=== PATIENT | female | born 1945 | race Caucasian/White ===

== ENCOUNTER 2018-01-03 18:47 | Inpatient (IN) | payer MEDICARE ==
[~2018-01-03] VITALS: Ht 160 cm; Wt 105.7 kg
--- NOTE | ~2018-01-03 | MORECARE ---
CASE MANAGEMENT DISCHARGE SUMMARY PATIENT: ANTWAN APODACA UNIT: [id number] ADM DATE: 01/03/18 AGE: 72 : 45 SEX: F ROOM/BED: D.2119 AUTHOR: FEDERICA BUCK PHYSICIAN: REFERRING PHYSICIAN: ZEV MCKENNA MD DATE OF SERVICE: 01/10/18 Discharge Plan Patient Name: ANTWAN APODACA Facility: [facility]:[place] : 1945 Planned Disposition: Home Anticipated Discharge Date: 01/09/18 Discharge Date: 01/09/2018 Expected LOS: 6 Initial Reviewer: [email or web address] Initial Review Date: 01/09/2018 Generated: 01/10/18 10:31 am Coverage Notice Reviewer: [email or web address] - Salvador Kay Notice Issued Date-Time: 01/09/2018 10:05 Notice Type: IM Discharge Notice Notice Delivered To: Family Member Relationship to Patient: Daughter Support Worker Name: RENNY GAVREY Delivery Method: HAND - Hand Delivered Jessi Days: Prior Verbal Notification: Recipient Understood Notice: Yes Recipient Signature: Yes Med Rec Note Co-signed by Attending: Coverage Notice Comment: Patient Name: ANTWAN APODACA Page 27517 at 0931 All edits/amendments must be made on the electronic document DICTATION DATE: 01/10/18930 DIRECTOR OF GRADUATE MEDICAL EDUCATION: YING 01/10/18930 RPT#: [id number] DC DATE:01/09/18 STATUS: DIS IN [facility] [address] [place] [address] END OF REPORT
--- NOTE | ~2018-01-03 | MORECARE ---
CASE MANAGEMENT DISCHARGE SUMMARY PATIENT: ANTWAN APODACA UNIT: [id number] ADM DATE: 01/03/18 AGE: 72 : 45 SEX: F ROOM/BED: D.4081 AUTHOR: FEDERICA BUCK PHYSICIAN: REFERRING PHYSICIAN: ZEV MCKENNA MD DATE OF SERVICE: 01/10/18 Discharge Plan Patient Name: ANTWAN APODACA Facility: [facility]:[place] : 1945 Planned Disposition: Home Anticipated Discharge Date: 01/09/18 Discharge Date: 01/09/2018 Expected LOS: 6 Initial Reviewer: [email or web address] Initial Review Date: 01/09/2018 Generated: 01/10/18 10:41 am Comments DCP- Discharge Planning Updated by [email or web address]: Salvador Kay on 01/10/18 8:[address] Patient Name: ANTWAN APODACA Admission Status: ER Accout number: [id number] Admission Date: 01-03-2018 : 1945 Admission Diagnosis:OTHER FECAL ABNORMALITIES Attending: ZEV MCKENNA Current LOS: 6 Anticipated DC Date: 01-09-2018 Planned Disposition: Home Primary Insurance: [facility] MEDICARE SOLUTIONS Discharge Planning Comments: CM MET WITH PT AND DAUGHTER IN ROOM TO DISCUSS DISCHARGE PLANNING AND NEEDS. ANTWAN APODACA provided verbal consent to discuss current and ongoing needs with/in the presence of: DAUGHTER, RENNY. PT REPORTS LIVING AT HOME DEPENDENTLY WITH HER ADULT DAUGHTER. PT'S DAUGHTER IS PAID CAREGIVER THROUGH [employer] WHO ASSISTS PT WITH HOUSEKEEPING AND PERSONAL CARE. INTERNET SOURCER SERVICES ARE 12 1/2 HOURS PER WEEK, , 3 HOURS PER DAY / TUESDAY 2 1/2 HOURS PT HAS BEDSIDE COMMODE, NEBULIZER, HOME AND PORTABLE OXYGEN, SHOWER CHAIR AND ROLLING WALKDER FROM [facility]. CM DISCUSSED AVAILABILITY OF HOME HEALTH, REHAB SERVICES AND MEDICAL EQUIPMENT. PT DENIES DISCHARGE NEEDS, REPORTS HER DAUGHTER WILL PICK HER UP FOR DISCHARGE HOME. IMPORTANT MESSAGE FROM MEDICARE PROVIDED AND EXPLAINED. Floor Layer Tile: Salvador Kay DCPIA - Discharge Planning Initial Assessment Updated by [id number]: Salvador Kay on 01/10/18 9:32 am * Is the patient Alert and Oriented? Yes * How many steps to enter\exit or inside your home? * PCP DR. MCKENNA * [facility] * Preadmission Environment Home with Family * ADLs Independent * Equipment Bedside Commode Nebulizer Oxygen Shower Chair Walker * Other Equipment WALKER WITH WHEELS SEAT AND BRAKES HOME AND PORTABLE OXYGEN [facility] - MEDICAL EQUIPMENT PROVIDER * List name and contact numbers for known caregivers / representatives who currently or will assist patient after discharge: RENNY GARVEY, DAUGHTER, * Verbal permission to speak to the caregivers and representatives has been obtained from the patient. Yes * Community resources currently utilized Private Duty Care * Please name any agencies selected above. [employer], 12 1/2 HOURS PER WEEK -TH, 3 HOURS PER DAY / TUESDAY 2 1/2 HOURS DAUGHTER IS PAID CAREGIVER * Additional services required to return to the preadmission environment? No * Can the patient safely return to the preadmission environment? Yes * Has this patient been hospitalized within the prior 30 days at any hospital? No Coverage Notice Reviewer: [email or web address] Aundrea Kay Notice Issued Date-Time: 01/09/2018 10:05 Notice Type: IM Discharge Notice Notice Delivered To: Family Member Relationship to Patient: Daughter Polymerization Supervisor Name: RENNY GARVEY Delivery Method: HAND - Hand Delivered Jessi Days: Prior Verbal Notification: Recipient Understood Notice: Yes Recipient Signature: Yes Med Rec Note Co-signed by Attending: Coverage Notice Comment: Last DP export: 01/10/18 8:31 a Patient Name: ANTWAN APODACA Page [phone] at 0941 All edits/amendments must be made on the electronic document DICTATION DATE: 01/10/18939 PEDIATRICIAN ACTIVE PRACTICE: YING 01/10/18939 RPT#: [id number] DC DATE:01/09/18 STATUS: DIS IN [facility] [address] [place] [address] END OF REPORT
--- NOTE | ~2018-01-03 | HP ---
PATIENT: ANTWAN APODACA MEDICAL RECORD: [id number] ACCOUNT: [id number] LOCATION:[address] : [birth year] ADMISSION DATE: 01/03/18 PCP: ZEV MCKENNA MD HISTORY AND PHYSICAL EXAMINATION DATE OF ADMISSION: __ CHIEF COMPLAINT: Passing dark red blood in stool. HISTORY OF PRESENT ILLNESS: This is a 72-year-old female who was brought to the Emergency Department after passing dark red blood, just started prior to admission. She has had the same problem before, 2-3 times. She was last admitted to [facility] in June of this year for diverticulitis with the same presentation. She has a little pain in the left lower quadrant of the abdomen. She had a GI workup by Dr. Castaneda done at [facility] in September 2016. This included an EGD and a colonoscopy done 08/18/2016. Findings showed a small hiatal hernia, mild gastritis and diverticulosis coli. There was 1 cm rectal polyp, mild internal hemorrhoids. It was felt her GI bleed at that time was likely diverticular in nature and has resolved. Again in June of this year at [facility], she had similar presentation and she stayed a total of 2-3 days and discharged after her symptoms resolved then, she is admitted now. PAST MEDICAL AND SURGICAL HISTORY: She has depression, arthritis, hypertension, history of reflux, multiple admissions for diverticulitis or diverticulosis with bleeding. She has a history of anxiety and has a history of remote myocardial infarction. However, she had a recent angiogram done at [facility] just in the last couple of months that showed no obstructive coronary artery disease. Incidental findings on a carotid Doppler ultrasound showed a thyroid cyst and an ultrasound was done at [facility] showing right thyroid nodule measuring 3.7 x 2.5 x 2.7 cm and is recommended for tissue biopsy of that. The patient reportedly has COPD; however, recent pulmonary function tests done at [facility] in [place] showed no evidence of COPD. She had a history of sleep apnea, used to be on CPAP, but it was removed from her home years ago. She had a sleep study done just in the last couple of months, showing severe sleep apnea, restless leg syndrome. I do not know if a CPAP machine has been ordered or not at this time. PAST SURGICAL HISTORY: Cataracts, cholecystectomy, bladder sling. ALLERGIES: SULFA. SOCIAL HISTORY: She lives with her daughter. HABITS: Never smoked. No alcohol or drugs. FAMILY HISTORY: Father is . He had hypertension, heart disease and some sort of cancer. Mother is . She had hypertension, heart disease and some sort of cancer. HOME MEDICATIONS: Include Zyrtec 10 mg a day, albuterol via nebulizer every 6 hours p.r.n. shortness of breath, Lipitor 20 mg a day, Norvasc 5 mg a day, Xanax 0.5 mg twice a day p.r.n. anxiety, aspirin 81 mg a day, Prozac 40 mg a day, Meloxicam 15 mg a day, buspirone 10 mg in the morning and 5 mg at bedtime, guaifenesin twice a day, omeprazole 20 mg twice a day, multivitamin, Lutein 20 mg capsule once a day, cranberry extract 500 mg once a day. HISTORY AND PHYSICAL [id number] ANTWAN APODACA REVIEW OF SYSTEMS: GENERAL: No major weight changes. HEENT: She does have some sinus and allergy problems. RESPIRATORY: Again, going through pulmonary evaluation, [facility] and recent pulmonary function test showed no evidence of COPD. She has a followup appointment next month with the medical corps officer there. CARDIAC: She has history of remote CT. Her echocardiogram was good and an angiogram done in the last couple of months showed no obstructive coronary artery disease. GASTROINTESTINAL: She has had the EGD and colonoscopy on 08/18/[address] at [facility] [address] Castaneda showing small hiatal hernia, mild gastritis and diverticulosis. She has had some heartburn. MUSCULOSKELETAL: She has arthritic aches and pains. NEUROLOGIC: Denies migraines or seizures. PSYCHIATRIC: Has anxiety. PHYSICAL EXAMINATION: VITAL SIGNS: Temperature 97.5, pulse 86, respirations 20, blood pressure 131/78, O2 sat 95%. GENERAL: She is awake and alert, in no acute distress, a little hard of hearing. HEENT: Grossly within normal limits. NECK: Supple. No JVD or bruit. HEART: Regular rate and rhythm. LUNGS: Fairly clear. ABDOMEN: Soft, flat. There is a little tenderness in the lower abdomen, more to the left of the midline. No guarding or rebound. No mass. EXTREMITIES: No edema. LABORATORY DATA: Initial CBC showed a white count of 12,700, hemoglobin 39.6. Several hours later, hemoglobin was down to 11.0, hematocrit 35.8. Urinalysis was okay. Basic metabolic panel was okay. Liver functions were fine. Troponin was less than 0.017. Amylase and lipase were normal. CT of the abdomen and pelvis showed a small focus of acute sigmoid diverticulitis. ASSESSMENT: Acute diverticulitis. PLAN: We will start IV antibiotics, clear liquid diet. GI has been consulted. Other tests or procedures as warranted. TRANSINT:[id number] Voice Confirmation ID: [id number] DOCUMENT ID: [id number] ZEV MCKENNA MD at 0844 CC: [id number] DICTATION DATE: 01/04/18925 INSPECTOR GRAIN MILL PRODUCTS: 01/04/18 1130 ADM IN [place] [id number] [place] [id number]
[2018-01-03] MEDS ORDERED: PROVENTIL/2.5 MG/3 M INH (18:56)
[2018-01-03] MEDS ORDERED: PROZAC40 MG PO (18:57)
[2018-01-03] MEDS ORDERED: NORVASC5 MG PO (18:57)
[2018-01-03] MEDS ORDERED: BUSPAR10 MG PO (18:57)
[2018-01-03] MEDS ORDERED: OMEPRAZOLE20 M1 PO (18:57)
[2018-01-03] MEDS ORDERED: LUTEIN20 MG PO (18:58)
[2018-01-03] MEDS ORDERED: CENTRUM COMPLE1 EACH PO (18:58)
[2018-01-03] MEDS ORDERED: ZYRTEC10 MG PO (18:58)
[2018-01-03] MEDS ORDERED: XANAX0.5 MG PO (18:58)
[2018-01-03] MEDS ORDERED: MOBIC7.5 MG PO (18:59)
[2018-01-03] MEDS ORDERED: BAYER CHEWABLE81 MG PO (18:59)
[2018-01-03] MEDS ORDERED: LIPITOR20 MG PO (18:59)
[2018-01-03] MEDS ORDERED: CRANBERRY EXTRACT PO (19:00)
[2018-01-03 19:52] LABS: BASOPHILS 0.2 % (0-2); EOSINOPHILS 2.1 % (0-7); HEMATOCRIT 39.6 % (36.0-48.0); HEMOGLOBIN 12.7 g/dL (12-16); IMMATURE GRANULOCYTES 0.2 % (0-5); LYMPHOCYTES 20.6 % (15-50); MCH 27.8 pg (26.0-34.0); MCHC 32.1 g/dL (31.0-37.0); MCV 86.7 fL (80.0-100.0); MONOCYTES 8.8 % (2-11); NEUTROPHILS 68.1 % (40-80); PLATELET COUNT 303 10x3/uL (130-400); RBC 4.57 10x6/uL (4.00-5.40); WBC 8.7 10x3/uL (4.8-10.8)
[2018-01-03 20:30] VITALS: BP 113/68
[2018-01-03 20:38] LABS: APTT 30.1 SECONDS (22.8-39.4); INR 1.01 (0.85-1.17); PROTIME 12.8 SECONDS (11.6-15.0)
[2018-01-03 20:43] LABS: ALKALINE PHOSPHATASE 122 U/L (46-116); ALT (SGPT) 20 U/L (10-68); BILIRUBIN - TOTAL 0.25 mg/dL (0.2-1.3); CALC OSMOLALITY 278 mosm/kg (275-300); CALCIUM 8.8 mg/dL (8.5-10.1); CARBON DIOXIDE 34.1 mmol/L (21.0-32.0); CHLORIDE - SERUM 102 mmol/L (98-107); CREATININE - SERUM 1.1 mg/dL (0.6-1.3); GLUCOSE 111 mg/dL (74-106); POTASSIUM - SERUM 3.9 mmol/L (3.5-5.1); PROTEIN - SERUM 7.1 g/dL (6.4-8.2); SODIUM 139 mmol/L (136-145); UREA NITROGEN 13 mg/dL (7-18); eGFR NON AFRICAN AMERICAN 52 mL/min (90-120)
[2018-01-03 20:46] LABS: AMYLASE - SERUM 25 U/L (25-115); LIPASE 82 U/L (73-393); TROPONIN-I < 0.017 ng/mL (0.000-0.060)
[2018-01-03 20:52] LABS: APPEARANCE CLEAR (CLEAR); BILIRUBIN NEGATIVE (NEGATIVE); COLOR YELLOW (YELLOW); GLUCOSE NEGATIVE (NEGATIVE); KETONE NEGATIVE (NEGATIVE); NITRITE NEGATIVE (NEGATIVE); PROTEIN NEGATIVE (NEGATIVE); RED CELLS - URINE 0-5 /hpf (0-5); SPECIFIC GRAVITY 1.015 (1.005-1.020); UROBILINOGEN NORMAL (NORMAL)
[2018-01-03 20:53] LABS: BACTERIA FEW /hpf (NONE SEEN)
[2018-01-03 21:30] VITALS: BP 161/53
[2018-01-03 22:30] VITALS: BP 156/77
[2018-01-04] VITALS (7 sets, daily range): BP systolic 122–152; BP diastolic 44–78; BMI 40.8
[2018-01-04] MEDS ORDERED: BUSPAR5 MG PO (01:47)
[2018-01-04] MEDS ORDERED: MUCUS RELIEF400 MG PO (01:55)
[2018-01-04 05:55] LABS: BASOPHILS 0.1 % (0-2); EOSINOPHILS 1.7 % (0-7); HEMATOCRIT 35.8 % (36.0-48.0); IMMATURE GRANULOCYTES 0.4 % (0-5); MCH 27.3 pg (26.0-34.0); MCHC 30.7 g/dL (31.0-37.0); MEAN PLATELET VOLUME 9.7 fL (7.4-10.4); MONOCYTES 10.4 % (2-11); NEUTROPHILS 59.4 % (40-80); PLATELET COUNT 271 10x3/uL (130-400); RBC 4.03 10x6/uL (4.00-5.40); RDW 17.1 % (11.5-14.5); WBC 7.2 10x3/uL (4.8-10.8)
[2018-01-04 06:20] LABS: ALBUMIN 2.8 g/dL (3.4-5.0); ANION GAP 11.5 mmol/L (8-16); BILIRUBIN - TOTAL 0.42 mg/dL (0.2-1.3); CALCIUM 8.3 mg/dL (8.5-10.1); CARBON DIOXIDE 30.9 mmol/L (21.0-32.0); CREATININE - SERUM 1.1 mg/dL (0.6-1.3); MCV 88.8 fL (80.0-100.0); POTASSIUM - SERUM 3.4 mmol/L (3.5-5.1)
[2018-01-05] VITALS (7 sets, daily range): BP systolic 132–174; BP diastolic 50–77; Ht 160 cm; Wt 105.7 kg
[2018-01-05 06:13] LABS: BASOPHILS 0.2 % (0-2); EOSINOPHILS 4.5 % (0-7); HEMATOCRIT 32.2 % (36.0-48.0); IMMATURE GRANULOCYTES 0.2 % (0-5); LYMPHOCYTES 20.1 % (15-50); MCH 27.4 pg (26.0-34.0); MCHC 31.1 g/dL (31.0-37.0); MCV 88.2 fL (80.0-100.0); MEAN PLATELET VOLUME 9.4 fL (7.4-10.4); RBC 3.65 10x6/uL (4.00-5.40); RDW 16.8 % (11.5-14.5)
[2018-01-05 06:20] LABS: PLATELET COUNT 215 10x3/uL (130-400); WBC 4.9 10x3/uL (4.8-10.8)
[2018-01-06 03:55] VITALS: BP 141/59
[2018-01-06 06:58] LABS: BASOPHILS 0.2 % (0-2); EOSINOPHILS 2.2 % (0-7); HEMATOCRIT 30.8 % (36.0-48.0); HEMOGLOBIN 9.6 g/dL (12-16); IMMATURE GRANULOCYTES 0.2 % (0-5); MCH 27.4 pg (26.0-34.0); MCHC 31.2 g/dL (31.0-37.0); MCV 87.7 fL (80.0-100.0); MEAN PLATELET VOLUME 9.4 fL (7.4-10.4); MONOCYTES 9.8 % (2-11); NEUTROPHILS 58.6 % (40-80); PLATELET COUNT 202 10x3/uL (130-400); RBC 3.51 10x6/uL (4.00-5.40); RDW 16.6 % (11.5-14.5); WBC 4.6 10x3/uL (4.8-10.8)
[2018-01-06 08:09] VITALS: BP 139/53
[2018-01-06 12:58] VITALS: BP 136/65
[2018-01-06 17:41] VITALS: BP 139/74
[2018-01-06 20:00] VITALS: BP 106/41
[2018-01-07 04:00] VITALS: BP 102/50
[2018-01-07 05:20] LABS: BASOPHILS 0.2 % (0-2); EOSINOPHILS 2.1 % (0-7); HEMATOCRIT 30.6 % (36.0-48.0); HEMOGLOBIN 9.5 g/dL (12-16); IMMATURE GRANULOCYTES 0.5 % (0-5); LYMPHOCYTES 31.3 % (15-50); MCH 27.2 pg (26.0-34.0); MCV 87.7 fL (80.0-100.0); MEAN PLATELET VOLUME 9.2 fL (7.4-10.4); MONOCYTES 10.5 % (2-11); NEUTROPHILS 55.4 % (40-80); PLATELET COUNT 202 10x3/uL (130-400); RBC 3.49 10x6/uL (4.00-5.40); RDW 16.4 % (11.5-14.5); WBC 4.2 10x3/uL (4.8-10.8)
[2018-01-07 09:56] VITALS: BP 151/83
[2018-01-07 16:17] VITALS: BP 140/61
[2018-01-07 20:30] VITALS: BP 167/79
[2018-01-08 04:30] VITALS: BP 149/76
[2018-01-08 06:45] LABS: HEMOGLOBIN 10.7 g/dL (12-16)
[2018-01-08 09:33] VITALS: BP 136/67
[2018-01-08 12:58] VITALS: BP 140/74
[2018-01-08 17:09] VITALS: BP 141/68
[2018-01-08 20:30] VITALS: BP 136/55
[2018-01-09 05:51] LABS: BASOPHILS 0.2 % (0-2); EOSINOPHILS 2.8 % (0-7); HEMATOCRIT 32.9 % (36.0-48.0); HEMOGLOBIN 10.4 g/dL (12-16); IMMATURE GRANULOCYTES 0.2 % (0-5); LYMPHOCYTES 29.4 % (15-50); MCH 27.6 pg (26.0-34.0); MCHC 31.6 g/dL (31.0-37.0); MCV 87.3 fL (80.0-100.0); MEAN PLATELET VOLUME 9.4 fL (7.4-10.4); MONOCYTES 12.3 % (2-11); NEUTROPHILS 55.1 % (40-80); PLATELET COUNT 224 10x3/uL (130-400); RBC 3.77 10x6/uL (4.00-5.40); RDW 16.4 % (11.5-14.5); WBC 4.7 10x3/uL (4.8-10.8)
[2018-01-09 08:54] VITALS: BP 145/72
[2018-01-09] MEDS ORDERED: FLAGYL500 MG PO (09:03)
[2018-01-09] MEDS ORDERED: LEVOFLOXACIN500 MG PO (09:03)
[2018-01-09] MEDS ORDERED: ANUSOL-HC25 MG RC (09:06)
== END 2018-01-09 10:33 | disposition home or self-care (01) | DRG 378 ==
LOC: D.ER 18:47 → D.M2 23:36 → D.EDHOLD 23:36 → D.M2 23:54
PROVIDERS: Family Medicine; Internal Medicine Gastroenterology
DX: K57.93 Diverticulitis of intestine, part unspecified, without perforation or abscess with bleeding (principal); F33.1 Major depressive disorder, recurrent, moderate; M19.90 Unspecified osteoarthritis, unspecified site; M81.0 Age-related osteoporosis without current pathological fracture; I11.0 Hypertensive heart disease with heart failure; I50.9 Heart failure, unspecified; J44.9 Chronic obstructive pulmonary disease, unspecified; I25.10 Atherosclerotic heart disease of native coronary artery without angina pectoris; K21.9 Gastro-esophageal reflux disease without esophagitis; G47.33 Obstructive sleep apnea (adult) (pediatric)

== ENCOUNTER → 2018-02-10 10:22 | Outpatient (CLI) | payer MEDICARE ==
[2018-01-05 10:14] VITALS: BMI 41.2
[~2018-02-10 10:22] MED LIST: ANUSOL-HC25 MG RC; BAYER CHEWABLE81 MG PO; BUSPAR10 MG PO; BUSPAR5 MG PO; CENTRUM COMPLE1 EACH PO; CRANBERRY EXTRACT PO; FLAGYL500 MG PO; LEVOFLOXACIN500 MG PO; LIPITOR20 MG PO; LUTEIN20 MG PO; MOBIC7.5 MG PO; MUCUS RELIEF400 MG PO; NORVASC5 MG PO; OMEPRAZOLE20 M1 PO; PROVENTIL/2.5 MG/3 M INH; PROZAC40 MG PO; XANAX0.5 MG PO; ZYRTEC10 MG PO
== END | disposition home or self-care (01) ==
LOC: D.US 01-27 08:00
DX: E04.1 Nontoxic single thyroid nodule (principal)

== ENCOUNTER → 2018-06-12 12:32 | Outpatient (CLI) | payer MEDICARE ==
[2018-01-05 10:14] VITALS: BMI 41.2
== END | disposition home or self-care (01) ==
LOC: D.RT 12:32
PROVIDERS: ATTEND Internal Medicine Pulmonary Disease
DX: R06.09 Other forms of dyspnea (principal)

== ENCOUNTER → 2018-11-08 10:15 | Outpatient (CLI) | payer MEDICARE ==
[2018-03-09 13:51] VITALS: BMI 41.6
[~2018-11-08 10:15] MED LIST changes: +ALBUTEROL2.5 MG/3 M INH; +FISH OIL 1,0001 CA1 PO; +FLUNISOLIDE29 MCG NASAL; +HYDROCODON-ACE1 EAC7 PO; +LIPITOR10 MG PO; +LISINOPRIL5 MG PO; +MUCINEX600 MG PO; +PHENERGAN25 MG RC; +PROZAC20 MG PO; +ULTRAM50 MG PO; +ZOFRAN4 MG PO
== END | disposition home or self-care (01) ==
LOC: D.US 10:15
PROVIDERS: ATTEND Family Medicine
DX: E04.1 Nontoxic single thyroid nodule (principal)

== ENCOUNTER 2018-11-15 07:24 | Inpatient (IN) | payer MEDICARE ==
[~2018-11-15] VITALS: Ht 160 cm; Wt 108.9 kg
[~2018-11-15 07:24] MED LIST changes: -ALBUTEROL2.5 MG/3 M INH; -FLUNISOLIDE29 MCG NASAL; -HYDROCODON-ACE1 EAC7 PO; -ULTRAM50 MG PO
[2018-11-16] MEDS ORDERED: PROZAC40 MG PO (14:01)
[2018-11-16] MEDS ORDERED: ULTRAM50 MG PO (14:03)
[2018-11-16] MEDS ORDERED: FLUNISOLIDE29 MCG NASAL (14:04)
[2018-11-17] VITALS (9 sets, daily range): BP systolic 143–160; BP diastolic 63–76; BMI 42.4; BMI 42.6
[2018-11-17 06:27] LABS: BASOPHILS 0.3 % (0-2); EOSINOPHILS 0.7 % (0-7); HEMOGLOBIN 11.8 g/dL (12-16); IMMATURE GRANULOCYTES 0.1 % (0-5); LYMPHOCYTES 21.3 % (15-50); MCHC 31.1 g/dL (31.0-37.0); MEAN PLATELET VOLUME 9.6 fL (7.4-10.4); MONOCYTES 8.3 % (2-11); NEUTROPHILS 69.3 % (40-80); RBC 4.37 10x6/uL (4.00-5.40); RDW 17.2 % (11.5-14.5); WBC 7.1 10x3/uL (4.8-10.8)
[2018-11-17 06:37] LABS: PLATELET COUNT 262 10x3/uL (130-400)
[2018-11-17 06:47] LABS: ANION GAP 10.1 mmol/L (8-16); CALCIUM 8.3 mg/dL (8.5-10.1); CARBON DIOXIDE 34.3 mmol/L (21.0-32.0); CREATININE - SERUM 1.1 mg/dL (0.6-1.3); POTASSIUM - SERUM 3.4 mmol/L (3.5-5.1)
[2018-11-17] MEDS ORDERED: ALBUTEROL2.5 MG/3 M INH (07:14)
--- NOTE | 2018-11-17 11:19 | NUR ---
RECEIVED PATIENT SUPINE ON BED. OPA IN PLACE, SHALLOW RESPIRATIONS, SA02 88% INCREASING TO 93% AFTER APPLICATION OF 10 L OXYGEN VIA MASK.
--- NOTE | 2018-11-17 11:30 | NUR ---
1115 OPA DISCONTINUED. PATIENT RESPONSIVE TO VERBAL STIMULI, ABLE TO HOLD HEAD OFF OF BED.
--- NOTE | 2018-11-17 12:18 | NUR ---
PATIENT ADMITTED TO ROOM 2240. ADMISSION ASSESSMENT COMPLETED PER ORDER. FALL PRECAUTIONS IN PLACE. QUESTIONS ANSWERED IN MAJORITY BY DAUGHTER, RENNY GARVEY. PATIENT VERY DROWSY FROM PROCEDURE. WILL CONTINUE TO MONITOR.
--- NOTE | 2018-11-17 14:03 | NUR ---
PATIENT SLEEPING. VITALS REMAIN STABLE. WILL CONTINUE TO MONITOR.
--- NOTE | 2018-11-17 15:01 | NUR ---
PATIENT SLEEPING. DAUGHTER AT BEDSIDE. VITALS REMAIN STABLE. WILL CONTINUE TO MONITOR.
--- NOTE | 2018-11-17 18:15 | NUR ---
PIPED POCKET MACHINE OPERATOR SET UP PER REQUEST. ICE CHIPS GIVEN. DENIES FURTHER NEEDS. DAUGHTER AT BEDSIDE. WILL CONTINUE TO MONITOR.
--- NOTE | 2018-11-18 01:22 | NUR ---
PT RESTING IN BED. EYES CLOSED. NO SIGNS OF DISTRESS. BREATHING EVEN AND UNLABORED. CPAP ON. IV SITE RT FA DRESSING CLEAN DRY AND INTACT. NO SIGNS OF INFECTION. ABD LAP SITES CLEAN DRY AND INTACT. ABD DISTENDED. SKIN CLEAN DRY AND INTACT. WILL CONTINUE PLAN OF CARE. CALL LIGHT IN REACH. BED ALARM ON. DAUGHTER AT BEDSIDE. BED LOWERED AND LOCKED. BED RAILS UPX2.
--- NOTE | 2018-11-18 02:16 | NUR ---
I have reviewed this patient and I concur with the Shift Assessment completed by the Licensed Practical Nurse today this shift.
[2018-11-18 04:00] VITALS: BP 135/86
[2018-11-18 06:12] LABS: BASOPHILS 0 % (0-2); EOSINOPHILS 0 % (0-7); HEMATOCRIT 35.3 % (36.0-48.0); HEMOGLOBIN 10.8 g/dL (12-16); IMMATURE GRANULOCYTES 0.3 % (0-5); LYMPHOCYTES 15.7 % (15-50); MCH 27.2 pg (26.0-34.0); MCHC 30.6 g/dL (31.0-37.0); MCV 88.9 fL (80.0-100.0); MEAN PLATELET VOLUME 9.5 fL (7.4-10.4); MONOCYTES 11.3 % (2-11); NEUTROPHILS 72.7 % (40-80); PLATELET COUNT 276 10x3/uL (130-400); RBC 3.97 10x6/uL (4.00-5.40); RDW 17.3 % (11.5-14.5); WBC 7.6 10x3/uL (4.8-10.8)
[2018-11-18 06:22] LABS: ANION GAP 10.4 mmol/L (8-16); CALCIUM 8.1 mg/dL (8.5-10.1); CARBON DIOXIDE 31.3 mmol/L (21.0-32.0); POTASSIUM - SERUM 3.7 mmol/L (3.5-5.1)
[2018-11-18 06:23] LABS: CREATININE - SERUM 1.4 mg/dL (0.6-1.3)
[2018-11-18 08:41] VITALS: BP 140/55
--- NOTE | 2018-11-18 09:29 | NUR ---
PT ALERT X 4. BREATH SOUNDS CLEAR BILAT, 3L O2 PER NC. ABDOMEN DISTENDED, DRESSING TO MIDLINE, LAP SITES, ABDOMEN TENDER. PT REPORTING PAIN OF 6/10, REMINDED PT TO USE MENTAL HEALTH COUNSELOR, WILL MONITOR. IV TO RIGHT FOREARM, PATENT, DRESSING CDI. FAMILY AT BEDSIDE. BED LOW, CALL LIGHT IN REACH. NO OTHER NEEDS AT THIS TIME.
[2018-11-18 09:51] VITALS: Ht 160 cm; Wt 108.9 kg
[2018-11-18 16:32] LABS: APPEARANCE CLEAR (CLEAR); BILIRUBIN NEGATIVE (NEGATIVE); COLOR YELLOW (YELLOW); GLUCOSE NEGATIVE (NEGATIVE); KETONE NEGATIVE (NEGATIVE); NITRITE NEGATIVE (NEGATIVE); PROTEIN 1+ mg/dL (NEGATIVE); UROBILINOGEN NORMAL (NORMAL)
[2018-11-18 16:33] LABS: EPITHELIAL CELLS 0-5 /hpf (0-5); RED CELLS - URINE 0-5 /hpf (0-5)
[2018-11-18 16:34] LABS: BACTERIA FEW /hpf (NEGATIVE)
[2018-11-18 17:01] VITALS: BP 121/64
[2018-11-18 20:00] VITALS: BP 129/72
[2018-11-19 06:01] LABS: BASOPHILS 0.2 % (0-2); EOSINOPHILS 1.2 % (0-7); HEMATOCRIT 30.5 % (36.0-48.0); LYMPHOCYTES 17.6 % (15-50); MCH 26.7 pg (26.0-34.0); MCHC 29.5 g/dL (31.0-37.0); MCV 90.5 fL (80.0-100.0); MEAN PLATELET VOLUME 9.4 fL (7.4-10.4); PLATELET COUNT 238 10x3/uL (130-400); RBC 3.37 10x6/uL (4.00-5.40); RDW 17.7 % (11.5-14.5); WBC 6.6 10x3/uL (4.8-10.8)
[2018-11-19 06:12] LABS: ANION GAP 8.7 mmol/L (8-16); CALCIUM 7.8 mg/dL (8.5-10.1); CARBON DIOXIDE 31.1 mmol/L (21.0-32.0); POTASSIUM - SERUM 3.8 mmol/L (3.5-5.1)
[2018-11-19 06:14] LABS: CREATININE - SERUM 0.9 mg/dL (0.6-1.3)
[2018-11-19 06:50] VITALS: BP 104/66
--- NOTE | 2018-11-19 07:00 | NUR ---
PATIENT RECIEVED FROM PREVIOUS SHIFT RESTING IN BED WITH NO NEEDS VOICED. DAUGHTER AT BEDSIDE. DAY 2 POST OP HALS COLECTOMY. ABDOMEN SOFT WITH BOWEL SOUNDS PRESENT. LOWER ABDOMINAL INCISION INTACT AND LAP INCISIONS X2. PATIENT DENIES ANY PAIN AT THIS TIME. DAUGHTER AT BEDSIDE. CL IN REACH
[2018-11-19 07:59] VITALS: BP 109/65
[2018-11-19 14:17] VITALS: BP 140/85
--- NOTE | 2018-11-19 18:23 | NUR ---
PATIENT SITTING UP IN CHAIR WITH NO NEEDS VOICED. PATIENT DENIES PAIN, SCHEDULED TORADOL GIVEN
[2018-11-19 20:00] VITALS: BP 135/59
--- NOTE | 2018-11-19 20:00 | NUR ---
ALERT AND ORIENTIATED, RESTING IN BED, DENIES PAIN OR NEEDS AT THIS TIME, SEE SHIFT ASSESSMENT, CALL STORMY KEATING
[2018-11-20 04:00] VITALS: BP 160/64
[2018-11-20 06:01] LABS: BASOPHILS 0.2 % (0-2); EOSINOPHILS 3.9 % (0-7); HEMATOCRIT 28.4 % (36.0-48.0); HEMOGLOBIN 8.4 g/dL (12-16); IMMATURE GRANULOCYTES 0.2 % (0-5); MCH 26.7 pg (26.0-34.0); MCHC 29.6 g/dL (31.0-37.0); MCV 90.2 fL (80.0-100.0); MEAN PLATELET VOLUME 9.5 fL (7.4-10.4); MONOCYTES 10.2 % (2-11); NEUTROPHILS 60.5 % (40-80); PLATELET COUNT 217 10x3/uL (130-400); RBC 3.15 10x6/uL (4.00-5.40); RDW 17.3 % (11.5-14.5)
[2018-11-20 06:02] LABS: WBC 4.4 10x3/uL (4.8-10.8)
[2018-11-20 06:05] LABS: ANION GAP 10.7 mmol/L (8-16); CALCIUM 7.8 mg/dL (8.5-10.1); CARBON DIOXIDE 29.1 mmol/L (21.0-32.0); CREATININE - SERUM 0.8 mg/dL (0.6-1.3); POTASSIUM - SERUM 3.8 mmol/L (3.5-5.1)
--- NOTE | 2018-11-20 07:10 | NUR ---
RESTING IN BED, EYES OPEN. ALERT AND ORIENTED. NO C/O PAIN, DILAUDID IRRIGATION SPECIALIST MANAGING PAIN AT THIS TIME. NO S/S OF ACUTE DISTRESS NOTED. FAMILY AT BEDSIDE. DENIES ANY NEEDS AT THIS TIME. CALL LIGHT IN REACH. WILL CONTINUE TO MONITOR.
[2018-11-20 08:36] VITALS: BP 155/68
[2018-11-20 13:17] VITALS: BP 150/56
[2018-11-20] MEDS ORDERED: HYDROCODON-ACE1 EAC7 PO (14:01)
--- NOTE | 2018-11-20 15:28 | NUR ---
DISCHARGED PATIENT HOME VIA WHEELCHAIR WITH FAMILY. ADMINISTERED FLU SHOT TO RIGHT DELTOID. WENT OVER DISCHARGE INSTRUCTIONS WITH PATIENT, PATIENT VERBALIZED UNDERSTANDING. DENIES ANYTHING FURTHER AT THIS TIME.
--- NOTE | 2018-11-20 15:32 | NUR ---
DISCONTINUED IV, CATHETER TIP INTACT.
--- NOTE | 2018-11-20 15:46 | MORECARE ---
CASE MANAGEMENT DISCHARGE SUMMARY PATIENT: ANTWAN APODACA UNIT: [id number] ADM DATE: 11/17/18 AGE: 73 : 45 SEX: F ROOM/BED: D.2240 AUTHOR: FEDERICA BUCK PHYSICIAN: REFERRING PHYSICIAN: LOUISE AGUILA MD DATE OF SERVICE: 11/20/18 Discharge Plan Patient Name: ANTWAN APODACA Facility: [facility]:[place] : 1945 Planned Disposition: Home Anticipated Discharge Date: 11/20/18 Discharge Date: 11/20/2018 Expected LOS: 3 Initial Reviewer: [email or web address] Initial Review Date: 11/20/2018 Generated: 11/20/18 4:46 pm Patient Name: ANTWAN APODACA Page [id number] at 1546 All edits/amendments must be made on the electronic document DICTATION DATE: 11/20/18 1546 DRIVING INSTRUCTOR: YING 11/20/18 1546 RPT#: [id number] DC DATE:11/20/18 STATUS: DIS IN [facility] [address] [place] [address] END OF REPORT
--- NOTE | 2018-11-20 15:55 | MORECARE ---
CASE MANAGEMENT DISCHARGE SUMMARY PATIENT: ANTWAN APODACA UNIT: [id number] ADM DATE: 11/17/18 AGE: 73 : 45 SEX: F ROOM/BED: D.2240 AUTHOR: FEDERICA BUCK PHYSICIAN: REFERRING PHYSICIAN: LOUISE AGUILA MD DATE OF SERVICE: 11/20/18 Discharge Plan Patient Name: ANTWAN APODACA Facility: [facility]:[place] : 1945 Planned Disposition: Home Anticipated Discharge Date: 11/20/18 Discharge Date: 11/20/2018 Expected LOS: 3 Initial Reviewer: [email or web address] Initial Review Date: 11/20/2018 Generated: 11/20/18 4:55 pm Comments DCP- Discharge Planning Updated by [email or web address]: Mariely Pereira on 11/20/18 2:[address] Patient Name: ANTWAN APODACA Admission Status: Urgent Accout number: [id number] Admission Date: 11-17-2018 : 1945 Admission Diagnosis: Attending: LOUISE AGUILA Current LOS: 3 Anticipated DC Date: 11-20-2018 Planned Disposition: Home Primary Insurance: MEDICARE A & B Discharge Planning Comments: CM met with patient to complete initial dc planning assessment. CM educated patient on the CM role and verbal consent given by patient to complete assessment. Patient lives at home with her daughter (Ivy). At discharge patient plans to return and feels this is a safe discharge. CM discussed availability of home health, rehab services, and medical equipment. Patient denied known discharge needs at this time. She states her daughter is her office aide from [employer]. States she gets 14.5 hours a week from [employer]. Daughter states they have all the DME they need. States she has grab bars in the shower and on the commode she uses. CM will continue to follow and will assist as needed with dc plans/needs. Service Secretary: Mariely Pereira DCPIA - Discharge Planning Initial Assessment Updated by [email or web address]: Mariely Pereira on 11/20/18 3:47 pm * Is the patient Alert and Oriented? Yes * How many steps to enter\exit or inside your home? 4/0 * PCP Dr. Jeffery * Pharmacy [facility] on [address] * Preadmission Environment Home with Family * ADLs Partial Dependent * Partial ADLs (Assistance needed) Ambulation Medication Management Transfers * Equipment Bedside Commode CPAP Grab Bars Hospital Bed Nebulizer Other Oxygen * Other Equipment Portable oxygen - [facility] * List name and contact numbers for known caregivers / representatives who currently or will assist patient after discharge: Ivy Ervin - R - [phone] * Verbal permission to speak to the caregivers and representatives has been obtained from the patient. Yes * Community resources currently utilized Private Duty Care * Please name any agencies selected above. [employer] DME for oxygen and nebulizer is [facility] * Additional services required to return to the preadmission environment? No * Can the patient safely return to the preadmission environment? Yes * Has this patient been hospitalized within the prior 30 days at any hospital? No Coverage Notice Reviewer: [id number] Aundrea Pereira Notice Issued Date-Time: 11/20/2018 14:30 Notice Type: IM Discharge Notice Notice Delivered To: Patient Relationship to Patient: Self Flower Pot Press Operator Name: Delivery Method: HAND - Hand Delivered Jessi Days: Prior Verbal Notification: Recipient Understood Notice: Yes Recipient Signature: Yes Med Rec Note Co-signed by Attending: Coverage Notice Comment: IMM explained, signed, given, copy placed in MR Last DP export: 11/20/18 2:47 Patient Name: ANTWAN APODACA Page [id number] at 1555 All edits/amendments must be made on the electronic document DICTATION DATE: 11/20/181554 SOFTWARE QUALITY MANAGER: YING 11/20/181554 RPT#: [id number] DC DATE:11/20/18 STATUS: DIS IN [facility] [address] [place] [address] END OF REPORT
--- NOTE | 2018-11-21 15:30 | MORECARE ---
CASE MANAGEMENT DISCHARGE SUMMARY PATIENT: ANTWAN APODACA UNIT: [id number] ADM DATE: 11/17/18 AGE: 73 : 45 SEX: F ROOM/BED: D.2240 AUTHOR: FEDERICA BUCK PHYSICIAN: REFERRING PHYSICIAN: LOUISE AGUILA MD DATE OF SERVICE: 11/21/18 Discharge Plan Patient Name: ANTWAN APODACA Facility: [facility]:[place] : 1945 Planned Disposition: Home Anticipated Discharge Date: 11/20/18 Discharge Date: 11/20/2018 Expected LOS: 3 Initial Reviewer: [email or web address] Initial Review Date: 11/20/2018 Generated: 11/21/18 4:30 pm Comments DCP- Discharge Planning Updated by [email or web address]: Mariely Pereira on 11/20/18 2:[address] Patient Name: ANTWAN APODACA Admission Status: Urgent Accout number: [id number] Admission Date: 11-17-2018 : 1945 Admission Diagnosis: Attending: LOUISE AGUILA Current LOS: 3 Anticipated DC Date: 11-20-2018 Planned Disposition: Home Primary Insurance: MEDICARE A & B Discharge Planning Comments: CM met with patient to complete initial dc planning assessment. CM educated patient on the CM role and verbal consent given by patient to complete assessment. Patient lives at home with her daughter (Ivy). At discharge patient plans to return and feels this is a safe discharge. CM discussed availability of home health, rehab services, and medical equipment. Patient denied known discharge needs at this time. She states her daughter is her disability aide from [employer]. States she gets 14.5 hours a week from [employer]. Daughter states they have all the DME they need. States she has grab bars in the shower and on the commode she uses. CM will continue to follow and will assist as needed with dc plans/needs. Excelsior Machine Operator: Mariely Pereira DCPIA - Discharge Planning Initial Assessment Updated by [email or web address]: Mariely Pereira on 11/20/18 3:47 pm * Is the patient Alert and Oriented? Yes * How many steps to enter\exit or inside your home? 4/0 * PCP Dr. Jeffery * Pharmacy [facility] on [address] * Preadmission Environment Home with Family * ADLs Partial Dependent * Partial ADLs (Assistance needed) Ambulation Medication Management Transfers * Equipment Bedside Commode CPAP Grab Bars Hospital Bed Nebulizer Other Oxygen * Other Equipment Portable oxygen - [facility] * List name and contact numbers for known caregivers / representatives who currently or will assist patient after discharge: Ivy Ervin - R - [phone] * Verbal permission to speak to the caregivers and representatives has been obtained from the patient. Yes * Community resources currently utilized Private Duty Care * Please name any agencies selected above. [employer] DME for oxygen and nebulizer is [facility] * Additional services required to return to the preadmission environment? No * Can the patient safely return to the preadmission environment? Yes * Has this patient been hospitalized within the prior 30 days at any hospital? No Coverage Notice Reviewer: [email or web address] Aundrea Pereira Notice Issued Date-Time: 11/20/2018 14:30 Notice Type: IM Discharge Notice Notice Delivered To: Patient Relationship to Patient: Self Claim Manager Name: Delivery Method: HAND - Hand Delivered Jessi Days: Prior Verbal Notification: Recipient Understood Notice: Yes Recipient Signature: Yes Med Rec Note Co-signed by Attending: Coverage Notice Comment: IMM explained, signed, given, copy placed in MR Last DP export: 11/20/18 2:55 Patient Name: ANTWAN APODACA Page 54471 at 1530 All edits/amendments must be made on the electronic document DICTATION DATE: 11/21/18 1530 METAL FABRICATOR WELDER: YING 11/21/18 1530 RPT#: [id number] DC DATE:11/20/18 STATUS: DIS IN [facility] [address] [place] [address] END OF REPORT
--- NOTE | 2018-11-30 13:49 | OP ---
PATIENT NAME: ANTWAN APODACA MEDICAL RECORD: [id number] :45 LOCATION:[address] [id number] ADMISSION DATE:11/17/18 SURGEON: KIKO AGUILA MD DATE OF OPERATION: 11/17/2018 PREOPERATIVE DIAGNOSES: 1. Recurrent diverticulitis. 2. Gastroesophageal reflux disease. 3. Organic heart disease. 4. Sleep apnea. 5. Hypertension. POSTOPERATIVE DIAGNOSES: 1. Recurrent diverticulitis. 2. Gastroesophageal reflux disease. 3. Organic heart disease. 4. Sleep apnea. 5. Hypertension. PROCEDURE: 1. Hand-assisted laparoscopic sigmoid colectomy. 2. Mobilization of the splenic flexure. SURGEON: Kiko Aguila MD REPORT OF PROCEDURE: The patient's abdomen was prepped and draped in sterile fashion. A cutdown was made in the midline in the suprapubic region. Electrocautery was used to dissect through the subcutaneous tissues and fascia and we entered the abdominal cavity. A Gelport was inserted with a 5-mm trocar within it. We insufflated the abdomen and under direct visualization placed a 5-mm trocar in the right lateral abdomen, a 12-mm trocar just anterior to the right anterior superior iliac crest, and a final 5-mm trocar in the left lower quadrant. The patient's sigmoid colon was very firm with signs of uzias-be-xihtkwn inflammation. This extended down to the proximal rectum and out laterally towards the left colon. As we dipped down into the rectum, the rectal tissue had some diverticula, but no signs of any inflammatory changes and the same was to be said about the patient's left colon about the mid left colon. We began our mobilization of the colon off of the inferior peritoneal attachments and the left colon by taking down the white line of Toldt. We mobilized this medially and eventually came up and was able to mobilize the splenic flexure by taking down some of the vascular attachments making it more easy to mobilize this portion of the colon. We then made a small opening in the mesorectum on what appeared to be normal appearing noninflamed rectal tissue and fired a 45 blue load Endo-JEFFERSON stapler. We then took down the sigmoid mesocolon using multiple fires of a white load 45 Endo-JEFFERSON stapler. We then eviscerated this portion of bowel through the wound protector. The mesentery was taken down with sequential clamp and tie technique and the distal left colon was transected using electrocautery on an area that appeared to be normal without inflammatory changes. There were still diverticula noted on this portion of the colon, but no signs of inflammation. The inflamed sigmoid colon was sent off for permanent specimen. We then placed a 2-0 Prolene at the end of the colon as a pursestring and inserted a 29 EEA anvil. There was some deserosalization of the tissue, which was oversewn with Lemberted 3-0 silks. The distal left colon was brought down to the proximal rectum and using a 29 EEA stapler, an end-to-end anastomosis was performed under direct visualization. There were 2 rings of OPERATIVE REPORT [id number] ANTWAN APODACA J tissue that were present in the staple line and we checked the anastomosis under water by instilling air in the rectum and there was no sign of a leak. We then oversewed the suture line anteriorly and laterally using interrupted Lemberted 3-0 silks. We irrigated out the abdomen thoroughly with normal saline. There was a little bit of bleeding from one of the appendix epiploica, which was treated with electrocautery. Otherwise, we did not see any evidence of any surgical bleeding. We inspected the splenic area one last time and did not see any evidence of any pooling of blood or bleeding. There appeared to be no evidence of a splenic injury. The ports and insufflation were then removed. The midline fascia was closed with a running #1 loop PDS times 2. The subcutaneous tissues were irrigated out and reapproximated with interrupted 3-0 Vicryl and the skin incisions were all closed with lyric. COMPLICATIONS: None. CONDITION: Stable. ANESTHESIA: General endotracheal. BLOOD LOSS: 50 mL. TRANSINT:[id number] Voice Confirmation ID: [id number] DOCUMENT ID: [id number] KIKO AGUILA MD at 1349 CC: ZEV MCKENNA MD, BHAVYA HOYOS and JOHNNIE ERVIN DO [id number] DICTATION DATE: 11/17/18 1335 OSHA INSPECTOR: 11/17/18 1418 DIS IN 11/20/18 [id number] [place] [address]
--- NOTE | 2018-11-30 13:49 | DS ---
PATIENT:ANTWAN APODACA :45 MEDICAL RECORD: [id number] DISCHARGE SUMMARY ADMISSION DATE: 11/17/18 DISCHARGE DATE: 11/20/18 DATE OF ADMISSION: 11/17/2018. DATE OF DISCHARGE: 11/20/2018. ADMISSION DIAGNOSES: 1. Recurrent diverticulitis. 2. Anemia of chronic disease. 3. Chronic obstructive pulmonary disease. 4. Hypertension. DISCHARGE DIAGNOSES: 1. Recurrent diverticulitis. 2. Anemia of chronic disease. 3. Chronic obstructive pulmonary disease. 4. Hypertension. PROCEDURE: Hand-assisted laparoscopic sigmoid colectomy on 11/17/2018. CONSULTATIONS: None. REPORT OF HOSPITALIZATION: The patient was admitted to the hospital after a successful hand-assisted laparoscopic sigmoid colectomy for diverticular disease. The patient did well those following days and was able to be started on a diet. She was tolerating a regular diet without nausea or vomiting and was having bowel function on the day of discharge. She had no fevers or chills and her labs were stable. Her pain was maintained with p.o. pain medication and Toradol. At that point, she was felt to be stable for discharge home. DISCHARGE INSTRUCTIONS: Return to clinic or call with any questions or concerns, fevers, chills, nausea, vomiting or worsening abdominal pain. ACTIVITIES: No heavy lifting or straining for 6 weeks postoperatively. FOLLOWUP: In clinic with me in 7-10 days. TRANSINT:[id number] Voice Confirmation ID: [id number] DOCUMENT ID: [id number] LOUISE AGUILA MD at 1349 CC: [id number] DICTATION DATE: 11/20/18 141 SENIOR TECHNICAL SPECIALIST: 11/20/18 1419 DIS IN 11/20/18 [facility] [address] [id number]
== END 2018-11-20 15:44 | disposition home or self-care (01) | DRG 331 ==
LOC: D.SDCHOLD 11-17 05:59 → D.MS 11-17 05:59 → D.SDCHOLD 11-17 08:15 → D.MS 11-17 11:50
PROVIDERS: Surgery; ADMIT Surgery; ATTEND Surgery
PROC: 0DTN0ZZ Resection of Sigmoid Colon, Open Approach (ICD-10-PCS; principal; 2018-11-17 08:15)
DX: K57.92 Diverticulitis of intestine, part unspecified, without perforation or abscess without bleeding (principal); K21.9 Gastro-esophageal reflux disease without esophagitis; G47.33 Obstructive sleep apnea (adult) (pediatric); I51.9 Heart disease, unspecified; I11.0 Hypertensive heart disease with heart failure; J44.9 Chronic obstructive pulmonary disease, unspecified; D63.8 Anemia in other chronic diseases classified elsewhere

== ENCOUNTER 2019-05-23 16:44 | Inpatient (IN) | payer MEDICARE ==
[~2019-05-23] VITALS: Ht 160 cm; Wt 111.9 kg
[~2019-05-23 16:44] MED LIST changes: +ALBUTEROL2.5 MG/3 M INH; +FLUNISOLIDE29 MCG NASAL; +HYDROCODON-ACE1 EAC7 PO; +ULTRAM50 MG PO
--- NOTE | 2019-05-23 18:11 | NUR ---
URINE TO THE LAB, BLOOD CULTURES X 2 LAC SENT TO THE LAB.
[2019-05-23 19:00] VITALS: BP 142/79
--- NOTE | 2019-05-23 19:15 | NUR ---
REPORT TO RICARDO ROBERTS.
[2019-05-23 19:33] LABS: BASOPHILS 0.1 % (0-2); EOSINOPHILS 0.8 % (0-7); HEMOGLOBIN 12.6 g/dL (12-16); IMMATURE GRANULOCYTES 0.4 % (0-5); LYMPHOCYTES 15.7 % (15-50); MCH 30.1 pg (26.0-34.0); MCHC 31.5 g/dL (31.0-37.0); MCV 95.7 fL (80.0-100.0); MEAN PLATELET VOLUME 9.6 fL (7.4-10.4); MONOCYTES 9.3 % (2-11); NEUTROPHILS 73.7 % (40-80); RBC 4.18 10x6/uL (4.00-5.40); RDW 13.4 % (11.5-14.5); WBC 7.4 10x3/uL (4.8-10.8)
[2019-05-23 19:41] LABS: BILIRUBIN NEGATIVE (NEGATIVE); GLUCOSE NEGATIVE (NEGATIVE); KETONE NEGATIVE (NEGATIVE); NITRITE NEGATIVE (NEGATIVE); UROBILINOGEN NORMAL (NORMAL)
[2019-05-23 19:43] LABS: BACTERIA FEW /hpf (NEGATIVE); EPITHELIAL CELLS OCC /hpf (0-5); RED CELLS - URINE OCC /hpf (0-5); WHITE CELLS - URINE 0-5 /hpf (NEGATIVE)
[2019-05-23 19:45] LABS: PLATELET COUNT 277 10x3/uL (130-400)
[2019-05-23 19:49] LABS: ANION GAP 11.1 mmol/L (8-16); CALCIUM 8.7 mg/dL (8.5-10.1); CARBON DIOXIDE 31.6 mmol/L (21.0-32.0); POTASSIUM - SERUM 3.7 mmol/L (3.5-5.1)
[2019-05-23 20:00] VITALS: BP 161/88
[2019-05-23 20:10] LABS: ALBUMIN 3.4 g/dL (3.4-5.0); BILIRUBIN - TOTAL 0.42 mg/dL (0.2-1.3)
[2019-05-23 20:12] LABS: TROPONIN-I 0.159 ng/mL (0.000-0.060)
[2019-05-23 21:00] VITALS: BP 158/90
--- NOTE | 2019-05-23 21:00 | NUR ---
PT ASSITED WITH BED ELAM AND FRESH PADS PLACED ON BED UN KARINA PATIENT. NO ACUTE DISTRESWS NOTED, CALL LIGHT WITHIN REACH, WILL CONTINUE TO MONITOR.
--- NOTE | 2019-05-23 22:30 | NUR ---
pt from er via stretcher, moved to bed, no distress noted, cl in reach, sr up x 2.
[2019-05-24 00:30] VITALS: BP 139/72
[2019-05-24 01:31] LABS: BASOPHILS 0.1 % (0-2); EOSINOPHILS 0.3 % (0-7); HEMATOCRIT 41.1 % (36.0-48.0); IMMATURE GRANULOCYTES 0.5 % (0-5); LYMPHOCYTES 9.8 % (15-50); MCH 30.1 pg (26.0-34.0); MCHC 31.6 g/dL (31.0-37.0); MCV 95.1 fL (80.0-100.0); MEAN PLATELET VOLUME 9.1 fL (7.4-10.4); MONOCYTES 1.9 % (2-11); NEUTROPHILS 87.4 % (40-80); PLATELET COUNT 242 10x3/uL (130-400); RBC 4.32 10x6/uL (4.00-5.40); RDW 13.4 % (11.5-14.5)
[2019-05-24 02:06] LABS: CALCIUM 8.5 mg/dL (8.5-10.1); CARBON DIOXIDE 32.4 mmol/L (21.0-32.0); CHLORIDE - SERUM 101 mmol/L (98-107); CKMB 4.6 U/L (0.0-3.6); CREATINE KINASE 142 UL (21-215); CREATININE - SERUM 1.1 mg/dL (0.6-1.3); POTASSIUM - SERUM 4.2 mmol/L (3.5-5.1); SODIUM 139 mmol/L (136-145); UREA NITROGEN 10 mg/dL (7-18); eGFR NON AFRICAN AMERICAN 51 mL/min (90-120)
[2019-05-24 02:07] LABS: CALC OSMOLALITY 280 mosm/kg (275-300); GLUCOSE 173 mg/dL (74-106)
[2019-05-24 04:30] VITALS: BP 148/77
--- NOTE | 2019-05-24 06:04 | NUR ---
I have reviewed this patient and I concur with the Shift Assessment completed by the Licensed Practical Nurse today this shift.
[2019-05-24 08:08] LABS: CKMB 4.2 U/L (0.0-3.6); CREATINE KINASE 144 UL (21-215)
[2019-05-24 08:11] LABS: TROPONIN-I 0.071 ng/mL (0.000-0.060)
[2019-05-24 08:50] VITALS: BP 135/70
[2019-05-24 11:34] VITALS: Ht 160 cm; Wt 111.9 kg
--- NOTE | 2019-05-24 13:59 | NUR ---
BACK FROM DIETIST. VS WNL. RIGHT WRIST STABLE WITHOUT BLEEDING OR HEMATOMA NOTED. WILL MONITOR.
[2019-05-24 14:11] VITALS: BP 125/62
[2019-05-24 18:05] VITALS: BP 93/60
[2019-05-24 20:00] VITALS: BP 118/43
[2019-05-25] VITALS: BP 161/71
[2019-05-25 04:00] VITALS: BP 141/54
[2019-05-25 05:04] LABS: BASOPHILS 0 % (0-2); EOSINOPHILS 0.3 % (0-7); HEMATOCRIT 36.7 % (36.0-48.0); HEMOGLOBIN 11.4 g/dL (12-16); IMMATURE GRANULOCYTES 0.6 % (0-5); LYMPHOCYTES 23.3 % (15-50); MCH 29.9 pg (26.0-34.0); MCHC 31.1 g/dL (31.0-37.0); MCV 96.3 fL (80.0-100.0); MEAN PLATELET VOLUME 9.2 fL (7.4-10.4); MONOCYTES 9.6 % (2-11); NEUTROPHILS 66.2 % (40-80); PLATELET COUNT 227 10x3/uL (130-400); RBC 3.81 10x6/uL (4.00-5.40); RDW 13.8 % (11.5-14.5)
[2019-05-25 05:18] LABS: ANION GAP 11.5 mmol/L (8-16); CALCIUM 8.8 mg/dL (8.5-10.1); CARBON DIOXIDE 31.7 mmol/L (21.0-32.0); CREATININE - SERUM 1.3 mg/dL (0.6-1.3)
[2019-05-25 05:36] LABS: POTASSIUM - SERUM 3.2 mmol/L (3.5-5.1)
--- NOTE | 2019-05-25 07:54 | HP ---
PATIENT: ANTWAN APODACA MEDICAL RECORD: [id number] ACCOUNT: [id number] LOCATION:[address] : 45 ADMISSION DATE: 05/23/19 PCP: ZEV MCKENNA MD HISTORY AND PHYSICAL EXAMINATION DATE OF ADMISSION: 05/23/2019 CHIEF COMPLAINT: Abdominal pain, shortness of breath. HISTORY OF PRESENT ILLNESS: A 73-year-old female who tells me that she was just "sick and nervous and my nerve pills would not work." Her daughter told me that she has fallen 2 or 3 times in the last 3 days. She has had some right-sided abdominal pain. She has had some nausea and vomiting for the last day or two. She has had some shortness of breath. She has history of COPD. In the ER, her temperature was 100.6 initially. Other vital signs were stable. O2 sat was 95% on 2 liters. She is on oxygen all the time. Also, in the ER, all other lab was essentially unremarkable except troponin was elevated at 0.159, the second troponin was 0.130 and the third and was even lower. Her urinalysis looked okay. The chest x-ray showed a questionable pleural effusion on the left, but a CT of the chest, abdomen and pelvis showed no effusion, no pneumonia. No acute findings throughout this chest, abdomen and pelvis. She was admitted with COPD, fever, elevated troponin and abdominal pain with nausea and vomiting. PAST MEDICAL HISTORY: Hypertension, COPD, followed by Dr. Marshall. She has anxiety, depression, sleep apnea. PAST SURGICAL HISTORY: Cataract repair, cholecystectomy, hand-assisted laparoscopic sigmoid colectomy in November [address] Spencer for recurrent diverticulitis. ALLERGIES: SULFA AND ADHESIVE TAPE. HOME MEDICATIONS: Include albuterol via nebulizer every 6 hours p.r.n. shortness of breath, Lipitor 20 mg at bedtime, lisinopril 10 mg once a day, Prozac 40 mg once a day, tramadol 50 mg p.r.n. pain, alprazolam 0.5 b.i.d. p.r.n. anxiety, buspirone 10 mg twice a day, Nasarel nasal spray 2 sprays twice a day p.r.n. allergies, omeprazole 20 mg twice a day, Zofran every 6 hours p.r.n. nausea and vomiting, multivitamin and cranberry extract. SOCIAL HISTORY: , retired and lives with her daughter. FAMILY HISTORY: Father is . He had hypertension, heart disease and some sort of cancer. Mother is . She had hypertension, heart disease and some sort of cancer. REVIEW OF SYSTEMS: GENERAL: No major weight changes. HEENT: Occasional allergy problems. RESPIRATORY: She does have COPD, followed by Dr. Marshall. She is on medicines and oxygen. She has sleep apnea and is on CPAP. CARDIAC: Has a history of chest pain, reportedly heart disease and angiogram done in 2018 at [facility] did not show any significant blockage at all. GASTROINTESTINAL: She has had reflux and recurrent bouts of diverticulitis with GI bleeds. Hopefully, better now that she had the sigmoid colectomy last year. MUSCULOSKELETAL: Arthritis. HISTORY AND PHYSICAL [id number] ANTWAN APODACA NEUROLOGIC: Denies seizures or migraine. PSYCHIATRIC: She has depression and anxiety. PHYSICAL EXAMINATION: VITAL SIGNS: Again, temperature when she came into the ER was 100.6, this morning is 98.1, pulse 80, respirations 18, blood pressure 148/77, O2 sat 97% on 2 liters. GENERAL: She is awake and alert. SKIN: Warm and dry. HEENT: Grossly within normal limits. NECK: Supple. HEART: Regular rate and rhythm without murmur. LUNGS: Clear. ABDOMEN: Obese, soft, nontender. No mass. EXTREMITIES: No edema. NEUROLOGIC: Intact. LABORATORY AND DIAGNOSTIC DATA: CBC showed a white count of 7400, hemoglobin 12.6, hematocrit 40. Basic metabolic panel is totally normal. Lactic acid 1.9. Liver functions were all okay. Amylase 27, lipase 70, troponin initially 0.159, the next troponin was 0.130, and last one was 0.071. Urinalysis; yellow, clear urine, specific gravity 1.010, trace blood, negative for nitrite, trace leukocyte esterase, occasional red blood cells, 0-5 white blood cells, occasional epithelial cell, and few bacteria. Urine culture has been ordered now. Chest x-ray with questionable pleural effusion on the left, but a CT of the chest, abdomen and pelvis showed no acute findings in the chest, abdomen or pelvis. ASSESSMENT: 1. Chronic obstructive pulmonary disease exacerbation. 2. Fever. 3. Abdominal pain with nausea and vomiting. 4. Elevated troponin. PLAN: Cardiology has been consulted. Echocardiogram is being done. Further recommendations per them. Blood cultures were ordered. I ordered a urine culture. She is started on IV antibiotics for what was felt to be a pneumonia in the ER (they did not have the CT back when they made their diagnoses). We will change her omeprazole to Protonix, increase BuSpar and Xanax. Other tests and procedures as warranted. TRANSINT:[id number] Voice Confirmation ID: [id number] DOCUMENT ID: [id number] ZEV MCKENNA MD at 0754 CC: [id number] DICTATION DATE: 05/24/19 1354 GEOGRAPHICAL HISTORIAN: 05/24/19 1445 ADM IN [id number] [place] [address]
[2019-05-25 14:29] VITALS: BP 192/72
--- NOTE | 2019-05-25 16:59 | NUR ---
OT NOTE: PT REQUIRED MOD A WITH LB HYGIENE TASKS. PT REQUIRED MIN A FOR UB HYGIENE TASKS. [phone] THANK YOU,KORIN PAGE
[2019-05-25 18:29] VITALS: BP 143/68
--- NOTE | 2019-05-25 19:45 | NUR ---
REPORT RECIEVED AND INITIAL ROUNDS COMPLETED. PT RESTING IN BED. PIV TO LEFT A/C SALINE LOCKED. O2 @ 2L/NC WITH NONLABORED RESPIRATIONS. BED ALARM IN PLACE. SR PER TELEMETRY. CPOC. CALL LIGHT IN REACH.
[2019-05-25 21:20] VITALS: BP 169/80
[2019-05-26 04:43] VITALS: BP 134/62
[2019-05-26 05:13] LABS: BASOPHILS 0.2 % (0-2); EOSINOPHILS 2.7 % (0-7); HEMATOCRIT 36.2 % (36.0-48.0); HEMOGLOBIN 11.1 g/dL (12-16); IMMATURE GRANULOCYTES 0.3 % (0-5); LYMPHOCYTES 28.5 % (15-50); MCH 29.8 pg (26.0-34.0); MCHC 30.7 g/dL (31.0-37.0); MCV 97.3 fL (80.0-100.0); MEAN PLATELET VOLUME 9.4 fL (7.4-10.4); MONOCYTES 10.6 % (2-11); NEUTROPHILS 57.7 % (40-80); PLATELET COUNT 233 10x3/uL (130-400); RBC 3.72 10x6/uL (4.00-5.40); RDW 14.1 % (11.5-14.5); WBC 5.9 10x3/uL (4.8-10.8)
[2019-05-26 05:34] LABS: ANION GAP 9.3 mmol/L (8-16); CALCIUM 8.6 mg/dL (8.5-10.1); CARBON DIOXIDE 32.6 mmol/L (21.0-32.0); CREATININE - SERUM 1.3 mg/dL (0.6-1.3)
[2019-05-26 05:35] LABS: POTASSIUM - SERUM 3.9 mmol/L (3.5-5.1)
--- NOTE | 2019-05-26 07:15 | NUR ---
RECEIVED PT IN BED EYES CLOSED RESP UNLABORED SKIN W/D COLOR WNL NAD NOTED
[2019-05-26 10:20] VITALS: BP 188/81
[2019-05-26] MEDS ORDERED: XANAX1 MG PO (12:06)
--- NOTE | 2019-05-28 09:57 | EC ---
PATIENT:ANTWAN APODACA DATE OF SERVICE: 05/23/19 SEX: F MEDICAL RECORD: [id number] DATE OF : 45 LOCATION:D.M2 [address].211 AGE OF PATIENT: 73 ADMISSION DATE: 05/23/19 REFERRING PHYSICIAN: INTERPRETING PHYSICIAN: TYRESE WEINBERG MD ECHOCARDIOGRAM REPORT ECHO CHARGES 4 ECHO COMPLETE Date: 05/24/19 CLINICAL DIAGNOSIS: HTN ECHOCARDIOGRAPHIC MEASUREMENTS (adult normal given) AC root (d.<3.7cm) 3.0 cm LV Septum d (<1.2 cm> 1.2 cm Valve Excursion 1.6 cm LV Septum (systole) 1.5 cm Left Atria (s.<4.0cm> 3.8 cm LVPW d(<1.2cm) 1.1 cm RV (d.<2.3cm) 3.0 cm LVPW (sytole) 1.2 cm LV diastole(<5.6CM) 5.5 cm MV E-F(>70mm/sec) cm LV systole 4.0 cm LVOT Diameter 2.0 cm MV exc.(>10mm) cm Est.ejection fraction (50-75%) % DOPPLER: LVIT cm/sec A 29 cm/sec E 77 cm/sec LA cm/sec RVSP 17.6 mmHg LVOT 101 cm/sec AOP1/2T m/s Asc. Ao 167 cm/sec RVOT 89 cm/sec RA cm/sec PA 99 cm/sec AV Gradient Peak 11.2 mmHg AV Mean 6.3 mmHg AV Area 2.3 cm MV Gradient Peak 5.2 mmHg MV Mean 2.3 mmHg MV Area cm COMMENTS: Vp Genetic: Kay [facility] Improvement Spec: 3 Dr. Santiago TAPE# PACS Pericardial Effusion Y DATE OF SERVICE: Adequate 2D, color flow imaging, spectral Doppler, and M-Mode. Borderline LVH. LV internal dimension is normal. Wall motion is normal. EF is greater than or equal to 55%. Aortic valve is sclerotic. No evidence of stenosis by Doppler interrogation. Left atrium is normal at 3.8 cm. Mitral valve shows no prolapse. Trace MR. Right-sided chambers are grossly normal. Mild TR. ECHOCARDIOGRAM REPORT [id number] ANTWAN APODACA TRANSINT:[id number] Voice Confirmation ID: [id number] DOCUMENT ID: [id number] TYRESE WEINBERG MD at 0957 CC: [id number] DICTATION DATE: 05/24/19 1348 CONSTRUCTION CARPENTERS HELPER: 05/24/19 1355 DIS IN 05/26/19 [id number] [place] [address]
== END 2019-05-26 14:33 | disposition home or self-care (01) | DRG 191 ==
LOC: D.ER 16:44 → D.M2 21:41 → D.SDCHOLD 05-24 11:57 → D.M2 05-24 12:00
PROVIDERS: Family Medicine; ADMIT Family Medicine; ATTEND Family Medicine
DX: J44.1 Chronic obstructive pulmonary disease with (acute) exacerbation (principal); I24.8 Other forms of acute ischemic heart disease; R11.2 Nausea with vomiting, unspecified; R10.9 Unspecified abdominal pain; I10 Essential (primary) hypertension; F41.8 Other specified anxiety disorders; R79.89 Other specified abnormal findings of blood chemistry; R51 Headache; W19.XXXA Unspecified fall, initial encounter